=== PATIENT | male | born 1955 | race Caucasian/White ===

== ENCOUNTER 2019-07-21 04:33 | Inpatient (IN) | payer OTHER ==
[~2019-07-21] VITALS: Ht 157.5 cm; Wt 63.5 kg
[2019-07-21 04:38] VITALS: BP_SYST 194
--- NOTE | 2019-07-21 04:38 | NUR ---
Patient to ER bed 3 to gown for evaluation. Side rails up. Report given to Brigid LLOYD.
--- NOTE | 2019-07-21 04:45 | NUR ---
Patient AOx4, ambulatory, presents to ED with complaint of abdominal pain x a few days. Patient reports decreased appetite out of fear that eating will worsen symptoms. No other symptoms or complaints.
--- NOTE | 2019-07-21 04:50 | NUR ---
ER MD Chavez at bedside for medical evaluation.
[2019-07-21] MEDS ORDERED: NACL 0.9% 1,000 ML IV ONE (05:01)
[2019-07-21 05:39] LABS: BASOPHILS # (AUTO) 0.1 K/uL (0.0-0.2); BASOPHILS % (AUTO) 0.9 % (0.0-2.0); EOSINOPHILS # (AUTO) 0.2 K/uL (0.0-0.4); HEMATOCRIT 47.2 % (36-54); HEMOGLOBIN 16.3 g/dL (14.0-18.0); LYMPHOCYTES # (AUTO) 2.2 K/uL (1.0-5.5); MEAN CORPUSCULAR HEMOGLOBIN 32 pg (27-31); MEAN CORPUSCULAR HGB CONC 35 % (32-36); MEAN CORPUSCULAR VOLUME 92 fL (79.0-98.0); MONOCYTES % (AUTO) 10.2 % (1.7-9.3); NEUTROPHILS # (AUTO) 6.2 K/uL (1.8-7.7); NEUTROPHILS % (AUTO) 63.9 % (40.0-70.0); PLATELET COUNT (AUTO) 249 K/uL (130-430); RED BLOOD CELL COUNT(AUTO) 5.11 MIL/uL (4.2-6.2); RED CELL DISTRIBUTION WIDTH 15.1 % (9.0-15.0); WHITE BLOOD COUNT (AUTO) 9.6 K/uL (4.8-10.8)
--- NOTE | 2019-07-21 05:50 | NUR ---
# 20 gauge angiocath placed to right hand. Use of asceptic technique. Opsite placed over site. Blood return noted. Flushed with 10 cc of normal saline. No evidence of infiltration noted. Patient tolerated well.
[2019-07-21 05:54] LABS: CALCIUM 8.5 mg/dL (8.4-11.0); CREATININE 1.02 mg/dL (0.55-1.30); POTASSIUM 4.3 mmol/L (3.5-5.1)
[2019-07-21 06:04] LABS: ALBUMIN 3.4 g/dL (3.4-4.8); TOTAL BILIRUBIN 0.7 mg/dL (0.0-1.0)
[2019-07-21 06:57] LABS: PROTHROMBIN TIME 10.2 SECS (9.5-12.5)
[2019-07-21 06:58] LABS: BILIRUBIN,URINE NEGATIVE (NEGATIVE); BLOOD, URINE NEGATIVE (NEGATIVE); CLARITY/URINE CLEAR (CLEAR); COLOR,URINE YELLOW (YELLOW); GLUCOSE,URINE NEGATIVE (NEGATIVE); KETONES,URINE NEGATIVE (NEGATIVE); LEUKOCYTE ESTERASE ,URINE NEGATIVE (NEGATIVE); NITRITE, URINE NEGATIVE (NEGATIVE); PH,URINE 7.5 (5.0-8.0); PROTEIN URINE NEGATIVE (NEGATIVE); UROBILINOGEN,URINE 0.2 (0.2-1.0)
[2019-07-21] MEDS ORDERED: MORPHINE 4 MG/ML INJ. SYRINGE IVP ONE (07:15)
[2019-07-21] MEDS ORDERED: hydrALAZINE HCL 20 MG/ML VIAL IVP ONE (07:15)
--- NOTE | 2019-07-21 07:15 | NUR ---
Assumed care, report received from GABINO Rainey. Patient is sleeping comfortably in bed. No signs and symptoms of respiratory distress at time of assessment. Patient is a&o x 4, elevated BP, denied any headaches, blurry vision or chest pain. Able to speak in full sentences. Instructed to call ED staff if symptoms worsen.
--- NOTE | 2019-07-21 07:30 | NUR ---
PT STATES HE DOES NOT KNOW THE NAME OF HIS HIGH BLOOD PRESSURE MEDICATION.
--- NOTE | 2019-07-21 08:28 | NUR ---
Administered Apresoline IV via IVP on Right hand. Patient tolerated the medication well.
--- NOTE | 2019-07-21 09:04 | NUR ---
Administered Morphine 4mg/ml, 1mL via IVP on Right hand. Flushed with NS 10mL. Pain severity 6/10 - sternal chest pain.
--- NOTE | 2019-07-21 09:20 | NUR ---
ADMISSION NOTE Received patient from ER via gurney. Patient admitted with diagnosis of PANCREATITIS. Patient is awake, alert, oriented X4. Patient oriented to hospital room, call light, toileting, pain management and safety-teach back done. Patient informed that Linda will be her nurse and that their room number is 104a. Personal belongings checked and Belongings List documented. Call light within reach.
--- NOTE | 2019-07-21 09:30 | NUR ---
Patient will be admitted to care of Dr. Meza. Admitted to Telemetry unit. Will go to room 118B. Belongings list completed. Summary report printed. Report given to GABINO Guerrero.
[2019-07-21 09:40] VITALS: BP_SYST 116
[2019-07-21] MEDS ORDERED: MORPHINE 4 MG/ML INJ. SYRINGE IVP PRN (09:45)
[2019-07-21] MEDS ORDERED: ONDANSETRON HCL 4 MG/2 ML VIAL IVP PRN (09:45)
[2019-07-21] MEDS ORDERED: LORazepam 2 MG/ML VIAL IVP PRN (09:45)
[2019-07-21] MEDS ORDERED: MORPHINE 2 MG/ML INJ. SYRINGE IVP PRN (09:45)
--- NOTE | 2019-07-21 09:45 | NUR ---
INITIAL NOTE PT RESTING IN BED, NO ACUTE DISTRESS NOTED, PT ON ROOM AIR TOLERATING WELL. PAIN CONTROLLED AT THIS TIME. IVF INFUSING WELL. EDUCATED PATIENT ON USE OF CALL LIGHT AND SAFETY IN REGARDS TO BED ALARM, PT VERBALIZED UNDERSTANDING. CALL LIGHT WITHIN REACH, BED IN LOW AND LOCKED POSITION WITH BED ALARM ON.
[2019-07-21] MEDS: D5/0.45 NS 1,000 ML IV SCH ×2 (10:14→17:54)
--- NOTE | 2019-07-21 11:02 | NUR ---
CONSUTATION CALLED FOR TICO ORANTES ORDER BY TIOC GALVEZ FOR CONSULT OF HYPERTENSION SPOKE WITH GREG
--- NOTE | 2019-07-21 11:08 | NUR ---
CONSULTATION CALLED FOR TICO ORANTES ORDER BY TICO ORANTES FOR CONSULT OF PANCREATITIS SPOKE WITH GREG
--- NOTE | 2019-07-21 11:16 | NUR ---
DR. VALORIE WESTFALL AT BEDSIDE EXAMINING PATIENT.
--- NOTE | 2019-07-21 11:20 | NUR ---
CONSULTATION CALLED FOR TIGRE GOODEN DR. SECONDS GRADER ORDER BY TICO URENA FOR CONSULT OF PANCREATITIS SPOKE WITH MAT
--- NOTE | 2019-07-21 11:45 | NUR ---
RN ROUNDS PT RESTING IN BED, NO ACUTE DISTRESS NOTED, BREATHING EVEN AND UNLABORED.
--- NOTE | 2019-07-21 13:45 | NUR ---
RN ROUNDS PATIENT RESTING IN BED, NO ACUTE DISTRESS NOTED, BREATHING EVEN AND UNLABORED.
--- NOTE | 2019-07-21 15:45 | NUR ---
RN ROUNDS UPDATED PATIENT ON PLAN OF CARE, EGD TO BE DONE TOMORROW. PATIENT AGREEABLE. EGD CONSENT FORM SIGNED BY PATIENT. PAIN CONTROLLED AT THIS TIME.
--- NOTE | 2019-07-21 19:16 | NUR ---
Chantel CASEY MD AT BEDSIDE EXAMINING PATIENT.
--- NOTE | 2019-07-21 19:30 | NUR ---
CHANGE OF SHIFT; pt. awake, alert and oriented. noted relief from abdominal pain, was just medicated with Morphine IV as ordered. no acute distress. IVF patent, instructed to call for help and use of call light.
--- NOTE | 2019-07-21 19:39 | NUR ---
CLOSING NOTE BEDSIDE SBAR REPORT GIVEN TO ECONOMIC DEVELOPMENT DIRECTOR RN. PATIENT RESTING IN BED, PAIN CONTROLLED AT THIS TIME. IVF INFUSING WELL. CALL LIGHT WITHIN REACH, BED IN LOW AND LOCKED POSITION WITH BED ALARM ON.
--- NOTE | 2019-07-21 20:00 | NUR ---
NOTES: pt. sleeping when checked. awakened for VS. IVF infusing. moves all extremities . on room air, no shortness of breath. Dr. Meza seen him earlier, order urine for UA and drug screen. call light at bedside, gambling monitor shows sinus rhythm.
[2019-07-21 21:00] VITALS: BP_SYST 146
--- NOTE | 2019-07-21 22:00 | NUR ---
NOTES: pt. been sleeping, visitor came. reminded pt. to be NPO, IVF infusing. needs attended.
--- NOTE | 2019-07-21 23:30 | NUR ---
NOTES: visitor still at bedside. no complaints noted.
[2019-07-22 02:04] VITALS: BP_SYST 144
--- NOTE | 2019-07-22 02:09 | NUR ---
NOTES: pt. checked and sleeping quietly. cardiac pattern unchanged. IVF infusing well.
[2019-07-22] MEDS: D5/0.45 NS 1,000 ML IV SCH ×2 (03:59→14:57)
--- NOTE | 2019-07-22 04:21 | NUR ---
NOTES: made rounds, pt. sound asleep. continue to monitor.
--- NOTE | 2019-07-22 06:17 | NUR ---
NOTES: GI lab came, will pick him up @ 0700. pt. still asleep when checked. IVF infusing. still has not void, urinal at bedside and container for the specimen.
[2019-07-22] MEDS ORDERED: MEPERIDINE HCL/PF 100 MG/ML AMP ONE ×2 (06:42→06:44)
[2019-07-22] MEDS ORDERED: BENZOCAINE 20% 0.5mL UD SPRAY MM ONE (06:43)
[2019-07-22] MEDS ORDERED: SIMETHICONE 40 MG/0.6 ML ML ONE (06:43)
[2019-07-22] MEDS ORDERED: MIDAZOLAM HCL 5 MG/5 ML VIAL ONE ×2 (06:43→06:44)
--- NOTE | 2019-07-22 06:46 | NUR ---
CLOSING NOTES; IV patent, kept NPO for EGD, consent signed. no complaints of pain. for further care and assistance.
[2019-07-22 07:06] LABS: HEPATITIS B CORE AB, TOTAL Positive (Negative); HEPATITIS B SURFACE AG Negative (Negative)
--- NOTE | 2019-07-22 07:20 | NUR ---
INITIAL NOTE BEDSIDE SBAR REPORT RECEIVED BY PRINT BINDING AND FINISHING WORKER RN. PT RESTING IN BED, NO ACUTE DISTRESS NOTED, BREATHING EVEN AND UNLABORED. IVF INFUSING WELL. CALL LIGHT WITHIN REACH, BED IN LOW AND LOCKED POSITION WITH BED ALARM ON.
--- NOTE | 2019-07-22 07:25 | NUR ---
TO GI LAB PATIENT TAKEN TO GI LAB VIA GURNEY ON ROOM AIR, SALINE LOCK. PATIENT ACCOMPANIED BY GI NURSE. DENIES ANY PAIN OR DISCOMFORT AT THIS TIME.
[2019-07-22 07:29] LABS: BASOPHILS # (AUTO) 0.1 K/uL (0.0-0.2); BASOPHILS % (AUTO) 0.7 % (0.0-2.0); EOSINOPHILS # (AUTO) 0.1 K/uL (0.0-0.4); EOSINOPHILS % (AUTO) 1.6 % (0.0-4.0); HEMOGLOBIN 15.8 g/dL (14.0-18.0); LYMPHOCYTES # (AUTO) 2.1 K/uL (1.0-5.5); LYMPHOCYTES % (AUTO) 22.6 % (20.5-51.5); MEAN CORPUSCULAR HEMOGLOBIN 32 pg (27-31); MEAN CORPUSCULAR HGB CONC 34 % (32-36); MEAN CORPUSCULAR VOLUME 93 fL (79.0-98.0); MONOCYTES % (AUTO) 10.3 % (1.7-9.3); NEUTROPHILS # (AUTO) 5.9 K/uL (1.8-7.7); NEUTROPHILS % (AUTO) 64.8 % (40.0-70.0); PLATELET COUNT (AUTO) 259 K/uL (130-430); RED BLOOD CELL COUNT(AUTO) 4.98 MIL/uL (4.2-6.2); RED CELL DISTRIBUTION WIDTH 14.6 % (9.0-15.0); WHITE BLOOD COUNT (AUTO) 9.2 K/uL (4.8-10.8)
[2019-07-22 07:55] LABS: ALBUMIN 2.8 g/dL (3.4-4.8); CALCIUM 8.5 mg/dL (8.4-11.0); CREATININE 0.97 mg/dL (0.55-1.30); POTASSIUM 4.1 mmol/L (3.5-5.1)
[2019-07-22 08:00] VITALS: BP_SYST 158
[2019-07-22] MEDS ORDERED: MEPERIDINE HCL/PF 100 MG/ML AMP IV ONE ×2 (08:10→08:14)
[2019-07-22] MEDS ORDERED: MIDAZOLAM HCL 5 MG/5 ML VIAL IVP ONE ×4 (08:12→08:28)
[2019-07-22] MEDS ORDERED: DIPHENHYDRAMINE INJ 50 MG/ML VIAL IVP ONE (08:18)
[2019-07-22] MEDS ORDERED: MEPERIDINE HCL/PF 50 MG/ML AMP IVP ONE (08:24)
--- NOTE | 2019-07-22 09:11 | NUR ---
BACK FROM GI PATIENT BACK FROM GI LAB, PATIENT SLEEPING, NO ACUTE DISTRESS NOTED, BREATHING EVEN AND UNLABORED.
[2019-07-22 10:08] LABS: HEPATITIS C VIRUS AB >11.0 s/co ratio (0.0-0.9)
[2019-07-22] MEDS ORDERED: DIPHENHYDRAMINE INJ 50 MG/ML VIAL ONE (10:10)
--- NOTE | 2019-07-22 11:20 | NUR ---
RN ROUNDS PT RESTING, BREATHING EVEN AND UNLABORED, NO ACUTE DISTRESS NOTED.
[2019-07-22 12:00] VITALS: BP_SYST 157
--- NOTE | 2019-07-22 13:20 | NUR ---
RN ROUNDS PT COMPLAINING OF FEELING HUNGRY. WILL CONTACT MD. PT DENIES ANY N/V OR ANY DISCOMFORT AT THIS TIME.
--- NOTE | 2019-07-22 13:46 | NUR ---
CÉSAR GLOVER AWAITING RETURN CALL. Addendum: 07/22/19 at 1352 by Linda East RN SPOKE WITH ANASTASIA FROM [employer].
--- NOTE | 2019-07-22 14:30 | NUR ---
SPOKE W/ DR. GLOVER INFORMED MD THAT PT IS REQUESTING ORAL INTAKE. PT DENIES ANY NAUSEA OR VOMITING AT THIS TIME. NEW ORDERS RECEIVED TO ADVANCE TO FULL LIQUID DIET, VERIFIED WITH TELEPHONE READ BACK.
[2019-07-22 15:10] LABS: BILIRUBIN,URINE NEGATIVE (NEGATIVE); BLOOD, URINE NEGATIVE (NEGATIVE); CLARITY/URINE CLEAR (CLEAR); COLOR,URINE YELLOW (YELLOW); GLUCOSE,URINE NEGATIVE (NEGATIVE); KETONES,URINE NEGATIVE (NEGATIVE); LEUKOCYTE ESTERASE ,URINE NEGATIVE (NEGATIVE); NITRITE, URINE NEGATIVE (NEGATIVE); PH,URINE 6.5 (5.0-8.0); PROTEIN URINE NEGATIVE (NEGATIVE)
--- NOTE | 2019-07-22 15:20 | NUR ---
RN ROUNDS PT AWAKE, DENIES ANY PAIN OR DISCOMFORT. FAMILY AT BEDSIDE.
[2019-07-22 15:33] LABS: BARBITURATE, URINE NEGATIVE (NEG <=200); BENZODIAZEPINE, URINE NEGATIVE (NEG <=150); CANNABINOID, URINE POSITIVE (NEG <=50); COCAINE, URINE NEGATIVE (NEG <=150); METHAMPHETAMINES SCREEN,URINE POSITIVE (NEG <=500); OPIATE, URINE POSITIVE (NEG <=100); PHENCYCLIDINE SCREEN,URINE NEGATIVE (NEG <=25); UR TRICYCLIC ANTIDEPRESSANTS NEGATIVE (NEG <=300); URINE AMPHETAMINE POSITIVE (NEG <=500); URINE METHADONE NEGATIVE (NEG <=200); URINE OXYCODONE SCREEN NEGATIVE (NEG <=100); URINE PROPOXYPHENE SCREEN NEGATIVE (NEG <=300)
--- NOTE | 2019-07-22 15:34 | NUR ---
SPOKE W/ Chantel CASEY INFORMED MD OF PATIENT BP 177/88 HR 66. NEW ORDERS RECEIVED, VERIFIED WITH TELEPHONE READ BACK.
[2019-07-22 16:00] VITALS: BP_SYST 177
--- NOTE | 2019-07-22 16:12 | NUR ---
[employer] Former [employer]: RECRUITMENT ADVERTISING MANAGER is to meet with Homeless pt. RECRUITMENT ADVERTISING MANAGER introduced self to pt. He did confirm he and his girlfriend are homeless and up until being admitted to [facility], stayed at the [address] in [place]. Pt stated he has been homeless for a long time. At one time he has a apt through the program, "[employer] [facility]" . He said he has evicted but it was not his fault. He stated he received SSI , about $930 per month. It pays for his motel, food, his gas for his car, and to pay for his vodka and pot. Pt. stated he has a sister in [place] in [place] and she is housing his trailer. Upon d/c, he plans to go to get his trailer as it will be his home. . Pt. denied feeling suicidal. 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 He stated he was prescribed Seroquel among 9 other meds. and they all made him feel like a zombie. Pt. 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 RECRUITMENT ADVERTISING MANAGER ask if she could leave a homeless packet of resources. Pt. was agreeable and said goodbye to RECRUITMENT ADVERTISING MANAGER. RECRUITMENT ADVERTISING MANAGER will remain available as needed.
--- NOTE | 2019-07-22 17:20 | NUR ---
RN ROUNDS PATIENT BP 177/88 (66). PATIENT DENIES ANY DIZZ, HEADACHE, OR DISCOMFORT. WILL CONTINUE TO MONITOR.
--- NOTE | 2019-07-22 17:22 | NUR ---
PAGED Sachi CASEY. AWAITING RETURN CALL.
[2019-07-22] MEDS ORDERED: amLODIPine BESYLATE 10 MG TABLET PO ONE (17:45)
--- NOTE | 2019-07-22 17:54 | NUR ---
DR. TICO WESTFALL AT BEDSIDE EXAMINING PATIENT.
--- NOTE | 2019-07-22 18:41 | NUR ---
CLOSING NOTE PATIENT EATING DINNER, DENIES ANY PAIN OR DISCOMFORT AT THIS TIME. IVF INFUSING WELL. CALL LIGHT WITHIN REACH, BED IN LOW AND LOCKED POSITION WITH BED ALARM ON. ALL NEEDS MET THROUGHOUT SHIFT. WILL CONTINUE TO MONITOR UNTIL PATIENT CARE IS ENDORSED TO AUTOMOTIVE CUSTOMER EXPERIENCE ADVISOR RN.
[2019-07-22] MEDS ORDERED: amLODIPine BESYLATE 10 MG TABLET PO SCH (18:45)
--- NOTE | 2019-07-22 18:59 | NUR ---
AMA PT REQUESTING LEAVE AMA, EDUCATED PT ON RISK OF LEAVING AMA, PT VERBALIZED UNDERSTANDING. PT SIGNED AMA FORM. IV CATHETER REMOVED, CATHETER INTACT, NO BLEEDING. ALL BELONGINGS WITH PATIENT. DENIES ANY N/V OF PAIN. PATIENT AMBULATES WITH STEADY GAIT, WALKED SELF TO FRONT OF HOSPITAL. SECURITY AWARE.
--- NOTE | 2019-07-22 19:02 | NUR ---
PAGED PAGED DR. AKHIL DOSHI TO INFORM HIM OF PATIENT LEAVING AMA SPOKE WITH HEBER
[2019-07-22] MEDS ORDERED: HYDROCHLOROTHIAZIDE 25 MG TABLET (HCTZ) PO SCH (19:45)
[2019-07-23] MEDS ORDERED: amLODIPine BESYLATE 10 MG TABLET PO SCH (09:00)
[2019-07-23] MEDS ORDERED: HYDROCHLOROTHIAZIDE 25 MG TABLET (HCTZ) PO SCH (09:00)
== END 2019-07-22 19:05 | disposition left against medical advice (07) | DRG 241 ==
LOC: SED 04:33 → STU 07:23
PROVIDERS: ADMIT Internal Medicine Cardiovascular Disease; ATTEND Internal Medicine Cardiovascular Disease
PROC: 0DB78ZX Excision of Stomach, Pylorus, Via Natural or Artificial Opening Endoscopic, Diagnostic (ICD-10-PCS; principal; 2019-07-22 08:00)
DX: K29.70 Gastritis, unspecified, without bleeding (principal); K76.6 Portal hypertension; K74.60 Unspecified cirrhosis of liver; K44.9 Diaphragmatic hernia without obstruction or gangrene; K20.9 Esophagitis, unspecified; F14.90 Cocaine use, unspecified, uncomplicated; I10 Essential (primary) hypertension; K57.90 Diverticulosis of intestine, part unspecified, without perforation or abscess without bleeding; K42.9 Umbilical hernia without obstruction or gangrene; K40.90 Unilateral inguinal hernia, without obstruction or gangrene, not specified as recurrent; R74.0 Nonspecific elevation of levels of transaminase and lactic acid dehydrogenase [LDH]; N20.0 Calculus of kidney; F12.10 Cannabis abuse, uncomplicated; Z53.29 Procedure and treatment not carried out because of patient's decision for other reasons; F15.10 Other stimulant abuse, uncomplicated; F17.210 Nicotine dependence, cigarettes, uncomplicated; K31.89 Other diseases of stomach and duodenum; Z90.89 Acquired absence of other organs
CPT/HCPCS: 36415; 43239; 80053; 80307; 81003; 83690-TC; 83735-TC; 84100-TC; 85025; 85610-TC; 86704; 86708; 86803; 87081; 87340; 96361; 96374; 96375; 99285; G0378; J0360; J1200; J2175; J2250; J2270